=== PATIENT | female | born 2000 | race Two or more races ===

== ENCOUNTER 2021-09-11 01:48 | Inpatient (IN) | payer OTHER ==
[~2021-09-11] VITALS: Ht 160 cm; Wt 2.3 kg
[2021-09-11] MEDS ORDERED: PRENATAL TABLE1 EAC1 PO (07:20)
== END 2021-09-14 17:39 | disposition home or self-care (01) | DRG 788 ==
LOC: LDR 01:48 → OB/GYN 01:48 → LDR 03:51 → OB/GYN 21:35
PROVIDERS: ADMIT Obstetrics & Gynecology; ATTEND Obstetrics & Gynecology
PROC: 4A1HXCZ Monitoring of Products of Conception, Cardiac Rate, External Approach (ICD-10-PCS; 2021-09-11)
PROC: 3E033VJ Introduction of Other Hormone into Peripheral Vein, Percutaneous Approach (ICD-10-PCS; 2021-09-11)
PROC: 10D00Z1 Extraction of Products of Conception, Low, Open Approach (ICD-10-PCS; principal; 2021-09-11 19:00)
DX: O61.0 Failed medical induction of labor (principal); O36.5930 Maternal care for other known or suspected poor fetal growth, third trimester, not applicable or unspecified; Z3A.37 37 weeks gestation of pregnancy; Z37.0 Single live birth; Z20.822 Contact with and (suspected) exposure to COVID-19